=== PATIENT | female | born 1975 | race Caucasian/White ===

== ENCOUNTER 2019-08-31 09:37 | Outpatient (CLI) | payer OTHER, SELFPAY ==
[2019-08-31 09:55] LABS: Hemoglobin A1C 6.8 % (<5.7)
[2019-08-31 11:17] LABS: Alanine Aminotransferase 27 U/L (14-59); Albumin Level 3.6 g/dL (3.4-5.0); Alkaline Phosphatase 89 U/L (46-116); Anion Gap 14.8 mmol/L (7-16); Aspartate Amino Transferase 19 U/L (15-37); Bilirubin,Total 0.3 mg/dL (0.00-1.00); Blood Urea Nitrogen 16 mg/dL (7-18); Calcium 8.8 mg/dL (8.5-10.1); Carbon Dioxide 29 mmol/L (21-32); Chloride 102 mmol/L (98-108); Estimated Glomerular Filt Rate > 60; Glucose 147 mg/dL (70-99); Osmolality Calculated 296 mOsm/kg (285-295); Potassium 4.8 mmol/L (3.5-5.1); Sodium 141 mmol/L (136-145); Total Protein 6.9 g/dL (6.4-8.2)
== END 2019-08-31 09:38 | disposition home or self-care (01) ==
PROVIDERS: PCP Family Medicine; Visit Provider Family Medicine
DX: E11.65 Type 2 diabetes mellitus with hyperglycemia (principal)
CPT/HCPCS: 36415; 80053; 83036

== ENCOUNTER 2020-06-05 16:40 | Outpatient (CLI) | payer OTHER, SELFPAY ==
[2020-06-05 18:07] LABS: SARS-CoV-2 Ag Negative (Negative)
[2020-06-07 00:37] LABS: SARS-CoV-2 RNA PCR Negative
== END 2020-06-05 16:41 | disposition home or self-care (01) ==
LOC: CHSLAB 16:43
PROVIDERS: PCP Family Medicine; Visit Provider Family Medicine
DX: J02.9 Acute pharyngitis, unspecified (principal); Z20.822 Contact with and (suspected) exposure to COVID-19
CPT/HCPCS: 87081; 87426; 87880; C9803; U0003; U0005

== ENCOUNTER 2021-01-04 11:03 | Emergency (ER) | payer OTHER, SELFPAY ==
[2021-01-04 11:29] VITALS: BP 105/56; PULSE 77; RESP 14; TEMP 36.9; O2SAT 96
[2021-01-04 11:44] LABS: SARS-CoV-2 Ag Positive (Negative)
--- NOTE | 2021-01-04 12:03 | ED.GENADULT ---
HPI - General Adult General Chief complaint: Headache Stated complaint: tested +/headache Source: patient Mode of arrival: ambulatory History of Present Illness HPI narrative: this is a 45-year-old female presents with a headache has chronic migraines is not her typical migraine currently no fever chills no shortness of breath has a family member positive with COVID. Currently there is no nausea vomiting no chest pain no audible wheezing no abdominal pain no diarrhea constipation. Onset (ago): day(s) Location: head Radiation: non-radiation Severity: moderate Severity scale (1-10): 6 Related Data Home Medications Medication Instructions Recorded Confirmed atorvastatin 40 mg PO QPM 01/04/21 01/04/21 buspirone 22 mg PO BID 01/04/21 01/04/21 lamotrigine 100 mg PO BID 01/04/21 01/04/21 melatonin-lemon balm leaf extr 5 mg PO HS 01/04/21 01/04/21 metformin 500 mg PO BID 01/04/21 01/04/21 omeprazole 40 mg PO QAM 01/04/21 01/04/21 pioglitazone 30 mg PO HS 01/04/21 01/04/21 trazodone 125 mg PO HS 01/04/21 01/04/21 venlafaxine 150 mg PO HS 01/04/21 01/04/21 Allergies Allergy/AdvReac Type Severity Reaction Status Date / Time No Known Allergies Allergy Verified 01/04/21 11:28 Review of Systems Review of Systems: All systems reviewed & are unremarkable except as noted in HPI and below PMFSH Past Medical History Medical History Migraine Exam Const: General: no acute distress and alert Orientation/consciousness: patient oriented x3 HENMT: Head: normal to inspection Eyes: Conjunctivae: conjunctivae normal Pupils: Equal, round and reactive pupils present EOM: EOMs intact bilaterally Neck: Neck: normal visual inspection, no lymphadenopathy and no meningeal signs Chest: Chest palpation & inspection: normal inspection of the chest Resp: Effort & Inspection: normal respiratory effort Auscultation: clear to auscultation bilaterally Cardio: Rate: regular rate Rhythm: regular rhythm GI: GI Palp: Yes Soft to palpation Percussion: Yes normal to percussion : General: Yes no CVA tenderness Back/Spine/Pelvis: Back: no CVA tenderness Skin: General skin exam: normal color Rashes: no rashes Extrem: General: normal to inspection Psych: Mental Status: mental status grossly normal Course Course Emergency Course: reassessment of patient received Toradol headache improved spleen that she had COVID and advised to drink plenty of water / fluids Tylenol or Motrin and self isolate and quarantine. Vital Signs Vital signs: Vital Signs Temperature 36.9 C 01/04/21 11:29 Pulse Rate 77 01/04/21 11:29 Respiratory Rate 14 01/04/21 11:29 Blood Pressure 105/56 L 01/04/21 11:29 Pulse Oximetry 96 01/04/21 11:29 Temperature 36.9 C 01/04/21 11:29 Pulse Rate 77 01/04/21 11:29 Respiratory Rate 14 01/04/21 11:29 Blood Pressure 105/56 L 01/04/21 11:29 Pulse Oximetry 96 01/04/21 11:29 Medical Decision Making Vital Signs Vital Signs: Vital Signs Temperature 36.9 C 01/04/21 11:29 Pulse Rate 77 01/04/21 11:29 Respiratory Rate 14 01/04/21 11:29 Blood Pressure 105/56 L 01/04/21 11:29 Pulse Oximetry 96 01/04/21 11:29 Temperature 36.9 C 01/04/21 11:29 Pulse Rate 77 01/04/21 11:29 Respiratory Rate 14 01/04/21 11:29 Blood Pressure 105/56 L 01/04/21 11:29 Pulse Oximetry 96 01/04/21 11:29 Lab Data Labs: Lab Results 01/04/21 Range/Units 11:12 SARS-CoV-2 Ag (Rapid) Positive A (Negative) Critical Care Time Critical Care Time Critical Care Time: No Discharge Plan Discharge Clinical Impression: COVID-19 Headache Qualifiers: Headache type: unspecified Headache chronicity pattern: unspecified pattern Intractability: not intractable Qualified Code(s): R51.9 - Headache, unspecified Patient Disposition: Home, Self-Care Condition: Stable Instructions: Antibiotic Form,
[2021-01-04] MEDS: KETOROLAC (*BKC) 60 MG/2 ML VIAL IM (12:12)
[2021-01-04 12:40] VITALS: BP 105/68; PULSE 73; RESP 18; O2SAT 97
== END 2021-01-04 12:42 | disposition home or self-care (01) ==
PROVIDERS: Emergency Provider Emergency Medicine; PCP Family Medicine
DX: U07.1 COVID-19 (principal); R51.9 Headache, unspecified
CPT/HCPCS: 87426; 96372; 99283; C9803; J1885

== ENCOUNTER 2024-10-22 10:20 | Outpatient (CLI) | payer BC, SELFPAY ==
--- NOTE | ~2024-10-22 | US_ITS ---
Pelvic ultrasound. Clinical History: Pelvic pain Technique: Realtime transabdominal scanning of the pelvis was performed. Color flow Doppler and Doppl er spectral analysis were performed. Findings: The uterus is anteverted. The endometrial stripe has a thickness of 3 mm. No focal mass is identified. The right ovary measures 2.6 x 2.8 x 2.9 cm. No significant right ovarian or adnexal mass is seen. The left ovary measures 2.3 x 1.3 x 2.3 cm. No significant left ovarian or adnexal mass is seen. There is no evidence of free fluid in the cul de sac. Impression: Unremarkable pelvic ultrasound. Reviewed, dictated and finalized at location . Impression: Unremarkable pelvic ultrasound.
== END 2024-10-22 10:21 | disposition home or self-care (01) ==
PROVIDERS: PCP Family Medicine; Visit Provider Nurse Practitioner Family
DX: R10.2 Pelvic and perineal pain (principal)
CPT/HCPCS: 76856